=== PATIENT | male | born 1975 | race American Indian/Alaskan Native ===

== ENCOUNTER 2018-11-20 10:25 | Outpatient (CLI) | payer BC ==
--- NOTE | 2018-11-20 17:43 | Cat Scan Report ---
FINAL REPORT EXAM: CT ORBITS/EAR/FOSSA WO/W CON HISTORY: OTITIS MEDIA OF LEFT EAR TECHNIQUE: Following administration of IV contrast axial helical imaging through the temporal bones with sagittal and coronal reformatted images obtained. Comparison: None FINDINGS: Evaluation of the soft tissues is significantly limited by lack of soft tissue algorithm images. Soft tissue algorithm images were requested but not provided. There is an approximately 5 millimeter rounded soft tissue density that is contiguous with the anteri or wall of the medial aspect of the external auditory canal and contiguous with the tympanic membrane . There is possible extension through the tympanic membrane into the middle ear. Soft tissue density also appears to be contiguous with the distal aspect of the malleus/umbo. The external auditory canals are otherwise unremarkable. There is no blunting of the scutum. There is no abnormal soft tissue density in Prussak's space. The mastoid sinuses are well pneumatized and without mucosal thickening, air-fluid levels or bone celsa truction. Middle ear cavities are unremarkable. The ossicles are well formed. The bony labyrinth is unremarkable in appearance bilaterally. The internal auditory canals are normal size. IMPRESSION: 1. Approximately 5 millimeter soft tissue density in the left external auditory canal that is contigu ous with the anterior wall of the external auditory canal, the left tympanic membrane and the distal aspect of the malleolus. Evaluation for the presence or absence of enhancement is significantly limit ed by the lack of soft tissue algorithm images. However, this is concerning for a soft tissue mass. 2. Otherwise unremarkable study. No evidence of mastoiditis.
== END 2018-11-20 10:26 | disposition home or self-care (01) ==
LOC: CT 10:25
PROVIDERS: ATTEND Otolaryngology
DX: H66.92 Otitis media, unspecified, left ear (principal)
CPT/HCPCS: 70482; Q9967

== ENCOUNTER 2018-12-16 07:56 | Outpatient (CLI) | payer BC | END 2018-12-16 07:57 | disposition home or self-care (01) | LOC: LABHHL 07:56 | PROVIDERS: ATTEND Otolaryngology | DX: H74.42 Polyp of left middle ear (principal) | CPT/HCPCS: 88304; 88305; 88312 ==

== ENCOUNTER 2019-02-26 09:34 | Outpatient (CLI) | payer BC | END 2019-02-26 09:35 | disposition home or self-care (01) | LOC: LABHHL 09:34 | PROVIDERS: ATTEND Otolaryngology | DX: D14.0 Benign neoplasm of middle ear, nasal cavity and accessory sinuses (principal) | CPT/HCPCS: 88305; 88307 ==

== ENCOUNTER 2019-08-19 06:03 | Outpatient (CLI) | payer BC ==
[2019-08-19 06:50] LABS: Hemoglobin 14.6 gm/dl (11.8-15.2); Mean Corpuscular HGB Conc 34 % (32-34); Mean Corpuscular Volume 101 fl (84-94); Platelet Count 229 K/mm3 (140-440); Red Blood Count 4.25 M/mm3 (3.65-5.03); Red Cell Distribution Width 14.4 % (13.2-15.2)
[2019-08-19 07:06] LABS: Alanine Aminotransferase 33 units/L (7-56); Albumin 4.2 g/dL (3.9-5); BUN/Creatinine Ratio 11; Blood Urea Nitrogen 11 mg/dL (9-20); Chol/HDL Ratio 6.47 %; HDL Cholesterol 34 mg/dL (40-59); Hemolysis Index 10; LDL Cholesterol,Direct TNR mg/dL (50-130)
[2019-08-19 07:15] LABS: Hepatitis C Virus Antibody Non-Reactive (NonReactive)
[2019-08-30 11:24] LABS: CD19, Absolute SEE SCANNED RESULT; CD3, Absolute SEE SCANNED RESULT; CD3, Percentage SEE SCANNED RESULT; CD4, Absolute SEE SCANNED RESULT; Lymphocytes, Absolute SEE SCANNED RESULT
[2019-08-30 11:25] LABS: CD4, Percentage SEE SCANNED RESULT; CD4/CD8 Ratio SEE SCANNED RESULT; CD8, Absolute SEE SCANNED RESULT; CD8, Percentage SEE SCANNED RESULT
== END 2019-08-19 06:04 | disposition home or self-care (01) ==
LOC: LAB 06:03
PROVIDERS: ATTEND Internal Medicine Infectious Disease
DX: Z00.00 Encounter for general adult medical examination without abnormal findings (principal)
CPT/HCPCS: 36415; 80053; 80061; 82024; 82164; 85027; 86592; 86689; 86803; 87591